=== PATIENT | male | born 1995 ===

== ENCOUNTER 2017-08-06 19:29 | Emergency (ER) | payer OTHER ==
[~2017-08-06] VITALS: Ht 160 cm; Wt 53.5 kg
[2017-08-06 19:39] VITALS: PULSE 67; TEMP 36.8; O2SAT 100; Ht 160 cm; Wt 53.5 kg
--- NOTE | 2017-08-06 21:01 | EMERGENCY ROOM VISIT NOTE ---
ED Visit Note First contact with patient: 20:33 CHIEF COMPLAINT: Right posterior calf laceration at work almost 24 hours ago HISTORY OF PRESENT ILLNESS: Patient is a 22-year-old male who presents emergency department for evaluation of a very superficial laceration on the posterior right calf that he sustained last evening. He was taking out a bag of garbage from the [employer], when he bumped into his leg. He believes that there was broken glass in the bag, which punctured through, causing the wound described below. There was some very scant bleeding initially. This controlled with pressure. He cleansed the area with an antiseptic from a first aid care. He denies any pain. There is no foreign body sensation. REVIEW OF SYSTEMS: Review of systems as per HPI. All other systems reviewed were negative. At least 6 systems reviewed. PMH: Electronic medical records are reviewed and summarized as above/below. See Problem List. Tetanus is up-to-date. 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 He does not smoke. PHYSICAL EXAM: Vital Signs: Reviewed Nurse's notes. There is a superficial, 6 cm long laceration on the posterior aspect of the right calf. There is no gaping of the wound edges. There is no foreign material in the wound and it looks clean. There is no active bleeding. No deep structures such as tendons or nerves are seen in the base of the wound. EMERGENCY DEPARTMENT COURSE: The patient was seen and assessed as above. He was reassured. He is well outside of the timeframe for which this could be repaired safely, however fortunately does not require suture repair. Patient was educated that the wound with heel fine by secondary intention. Local wound care measures were discussed. He has no reason to suspect foreign body, and given the depth of the wound, this was felt to be unlikely. The patient was educated on the worrisome signs or symptoms for which he should take immediate medical attention. He can follow-up with [facility] if necessary. Medication reconciliation: I attest that I have personally reviewed the patient' s current medication list. Blood pressure screening : Patient's blood pressure was not documented in triage , and was not rechecked at the time of discharge. Current/Historical Medications No Active Prescriptions or Reported Meds Allergies Coded Allergies: No Known Allergies (Unverified , 08/06/17) Vital Signs Date Time Temp Pulse Resp B/P (MAP) Pulse Ox O2 Delivery O2 Flow Rate FiO2 08/06/17 19:39 36.8 67 18 100 Room Air Departure Information Impression Primary Impression: Superficial laceration Additional Impression: Work related injury Prescriptions No Active Prescriptions or Reported Meds Referrals [facility] (PCP) Patient Instructions [facility] Additional Instructions Keep wound clean and dry. Wash daily with mild soap and water when bathing. Use an antibiotic ointment on the wound until healed. Cover as needed with a bandage. Return sooner for any signs of infection (increasing redness, swelling , drainage). Ice and elevate for swelling and pain. Ibuprofen 600 mg and Tylenol 1000 mg every 6 hrs for pain. May resume normal activity without restrictions. Problem Qualifiers
== END 2017-08-06 21:12 | disposition home or self-care (01) ==
LOC: C.EDB 19:32 → C.EDD 21:12
DX: S81.811A Laceration without foreign body, right lower leg, initial encounter (principal); W25.XXXA Contact with sharp glass, initial encounter; Y99.0 Civilian activity done for income or pay

== ENCOUNTER 2019-03-24 11:33 | Observation (INO) ==
--- OUTSIDE RECORDS SUMMARY | 2019-03-24 11:45 | External Medical Summary | Continuity of Care Document ---
:1995 Author Name Abi Denise, Provider Address Unavailable Unavailable , Care Team Providers Name Role Phone Salud Moise PA-C Unavailable [email or web address] PCP, UNKNOWN Unavailable Unavailable Unavailable Unavailable Unavailable Problems Chest pain (786.50) (R07.9) Cough (786.2) (R05) Pneumonia (486) (J18.9) Allergies and Adverse Reactions No Known Allergies (Allergy) Medications Tessalon Perles 100 MG Oral Capsule; TAKE 1 CAPSULE 3 TIMES DAILY NEEDED. Quantity: 40 Refills: 0 ProAir HFA 108 (90 Base) MCG/ACT Inhalat ion Aerosol Solution; INHALE 2 PUFFS EVERY 4 HOURS NEEDED 8.5 GM Inhaler Quantity: 1 Refills: 5 predniSONE 20 MG Oral Tablet; Take two tablets daily until f inished Quantity: 8 Refills: 0 Ibuprofen 200 MG Oral Tablet; TAKE 1 TABLET 3 TIMES DAILY NEEDED. Start: 24-Mar-2019 Refills: 0 Procedures History of no history of surgery Status: Completed Immunizations Immunizations not documented Family History Father Family history of diabetes mellitus (V18.0) (Z83.3) Status: Active Social History - Smoking Status Never smoker Plan of Treatment Planned Encounters Appointment; Salud Moise PA-C Start: 31-Mar-2019 9:00 Re quest Planned Observations Planned Goals not documented Results No Known Results Results not documented Vital Signs 24-Mar-2019 9:42 Systolic 118 mm[Hg] Comments: Location: LUE; Position: Sitting Diastolic 74 mm[Hg] Comments: Location: LUE; Position: Sitting Height 62 in BSA Calculated 1.5 m2 BMI Calculated 20.53 kg/m2 Weight 112.25 lb Respiration 13 /min O2 Saturation 98 % Comments: Source: RA Heart Rate 69 /min Temperature 97.8 f Encounters Appointment; Salud Moise PA-C 24-Mar-2019 9:45 Encounter Diagnosis: Problem not documented Appointment; Salud Moise PA-C 31-Mar-2019 9:00 Encounter Diagnosis: Problem not documented
[2019-03-24] MEDS ORDERED: MAGNESIUM HYDROXIDE SUSP 30 ML UDC PO PRN (14:49)
[2019-03-24] MEDS ORDERED: ALUMINUM/MAGNESIUM SUSP 30 ML UDC PO PRN (14:49)
[2019-03-24] MEDS ORDERED: ONDANSETRON INJ 2 MG/ML 2 ML VIAL IV PRN (14:49)
[2019-03-24] MEDS ORDERED: POLYETHYLENE (MIRALAX) 17 GM PACK PO PRN (14:49)
--- NOTE | 2019-03-24 15:03 | History & Physical Report ---
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 He presents with a 8 week history of wet cough, 1-2 episodes of blood streaked phlegm, on/off fevers, and <10 pound weight loss. Recent travel to [facility] 10/2018. Positive Tspot and CXR findings of RUL lesion despite 3 outpatient abx tx. +BCG vaccine hx. Suspected TB/Intermittent Fever/Cough/Hemoptysis -+BCG vaccine as child, +Tspot as outpatient -Isolation room, airborne precautions -Pulm and ID on board, appreciate recs -Chest CTA ordered -Awaiting CBC, CMP -[facility], [facility] infection control, and social services assistant consulted -For Bronch on 03/[address] Santana -Likely begin 4 abx after bronch -Need to make girlfriend aware, refer for prophylaxis Code: full DVTP: not indicated Dispo: med/surg, isolation room, home after starting abx and getting set up with [facility] Since we are going into a holiday weekend, if he is discharged prior to Wednesday, call the 24 hour [facility] hotline so that he can be seen by the on-call nurse after discharge (assuming he will be diagnosed with TB). 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 He presents with a 8 week history of wet cough, 1-2 episodes of blood streaked phlegm, on/off fevers, and <10 pound weight loss. He was being seen by [facility] who were working him up for URI illness, seeing him every 1-2 weeks since Mid-January. He was given tesslon and proair on 02/14. CXR on 03/01 showed RUL pna and he was given clarithromycin. On 03/06 he notes the cough was unchanged. He was given 5 days of 40mg prednisone, which helped his symptoms and he DNS for appt on 03/10. His symptoms returned, however, a/w intra-scapular discomfort while coughing and more frequent fevers. On 03/21 CXR was repeated and showed progression of RUL infiltrate. He was give Augmentin and azithromycin. Tspot was performed at that visit and returned as positive. He was referred to pulmonology, who saw him today (03/24). He notes a 2 lb weight loss this week. Aside from mostly dry cough and back pain when coughing, he reports some loose stool which he associates with his recent antibiotic use. Of note, he traveled to [facility] in October 2018, and traveled to [facility] in December 2018. Hx of BCG vaccination Lives in [employer] dorm, no roommate. 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: No Beliefs That Will Affect Care: Synagogue Current Living Situation: Significant Other Other Information That Helps Us Care for You: No Feels Safe at Home: Yes Safety Concerns: Feels Safe At This Time Smoking Status: Never smoker Do You Dip or Chew Tobacco: No Second Hand Exposure: No Tobacco Cessation Education Requested by Patient: No Hx Alcohol Use: Yes Hx Substance Use: No Review of Systems Review of Systems: All systems reviewed & are unremarkable except as noted in HPI & below Constitutional: + weight loss; no fever (currently afebrile) Respiratory: + cough, + hemoptysis (not currently but has in last month) and + pain with cough; no wheezing Cardiovascular: no chest pain, no dyspnea, no palpitations and no lightheadedness Gastrointestinal: no abdominal pain Genitourinary: no dysuria Musculoskeletal: + back pain (intrascapular while coughing) Integumentary: no rash and no lesions Physical Exam Constitutional: WD/WN, vitals as above Eyes: PERRL, conjunctivae normal, anicteric sclerae ENMT: external ear and nose normal, oropharynx normal Neck: normal visual inspection Respiratory: normal respiratory effort and + cough Auscultation: + rhonchi (RUL) Cardiovascular: RRR, no murmur, no edema Gastrointestinal (Abdomen): normal bowel sounds, soft, nontender, no hepatosplenomegaly Musculoskeletal: no cyanosis or clubbing, extremities motor strength 5/5 Skin: no rashes, warm and dry Neurologic: PERRL, EOMI, accommodation nl, no face palsy, no dysarthria Psychiatric: A+Ox3, euthymic affect Lymphatic: no cervical or axillary lymphadenopathy Results & Data Vital Signs (Past 12 Hours) Vital Signs Temp Pulse Resp BP Pulse Ox 03/24/19 12:06 37 C 99 H 18 106/73 99 Laboratory Results 03/24/19 03/24/19 Range/Units 15:16 15:09 WBC 12.57 H (4.8-10.8) K/uL RBC 4.95 (4.7-6.1) M/uL Hgb 15.3 (14.0-18.0) g/dL Hct 41.1 L (42-52) % MCV 83.0 (80-100) fL MCH 30.9 (25-34) pg MCHC 37.2 H (32-36) g/dL RDW Std Deviation 36.6 (36.4-46.3) fL RDW Coeff of Elva 12.2 (11.5-14.5) % Plt Count 242 (130-400) K/uL MPV 10.1 (7.4-10.4) fL Immature Gran % (Auto) 0.2 % Neut % (Auto) 67.3 % Lymph % (Auto) 22.6 % Wheeler % (Auto) 7.6 % Eos % (Auto) 2.1 % Baso % (Auto) 0.2 % Immature Gran # (Auto) 0.03 H (0.00-0.02) K/uL Neut # (Auto) 8.46 H (1.4-6.5) K/uL Lymph # (Auto) 2.84 (1.2-3.4) K/uL Wheeler # (Auto) 0.96 H (0.11-0.59) K/uL Eos # (Auto) 0.26 (0-0.5) K/uL Baso # (Auto) 0.02 (0-0.2) K/uL Sodium 139 (136-145) mmol/L Potassium 3.8 (3.5-5.1) mmol/L Chloride 105 (98-107) mmol/L Carbon Dioxide 28 (21-32) mmol/L Anion Gap 6.0 (3-11) BUN 11 (7-18) mg/dl Creatinine 0.85 (0.6-1.4) mg/dl Est Cr Clr Drug Dosing 96.8 ml/min Est GFR ( Amer) 143.4 Est GFR (Non-Af Amer) 123.7 BUN/Creatinine Ratio 13.1 (10-20) Glucose 83 (70-99) mg/dl Calcium 9.5 (8.5-10.1) mg/dl Total Bilirubin 0.5 (0.2-1) mg/dl AST 22 (15-37) U/L ALT 34 (12-78) U/L Alkaline Phosphatase 93 (45-117) U/L Total Protein 8.9 H (6.4-8.2) gm/dl Albumin 3.9 (3.4-5.0) gm/dl Globulin 5.0 H (2.5-4.0) gm/dl Albumin/Globulin Ratio 0.8 L (0.9-2) Medications Administered Current Inpatient Medications Acetaminophen (Tylenol) 650 mg PO Q4H PRN PRN Reason: pain/fever Stop: 04/23/19 14:48 Al Hydrox/Mg Hydrox/Simethicone (Maalox) 30 ml PO Q6H PRN PRN Reason: Dyspepsia Stop: 04/23/19 14:48 Sodium Chloride (Nss 1000ml) 1,000 mls @ 15 mls/hr IV .Q24H CHINYERE Stop: 04/24/19 07:44 Ioversol (Optiray 320 125ml) 115 ml IV ONCE PRN PRN Reason: Interaction Checking Stop: 03/28/19 16:43 Last Admin: 03/24/19 16:45 Dose: 115 ml Documented by: Magnesium Hydroxide (Milk Of Magnesia) 30 ml PO Q6H PRN PRN Reason: Constipation Stop: 04/23/19 14:48 Ondansetron HCl (Zofran) 4 mg IV Q6H PRN PRN Reason: Nausea Stop: 04/23/19 14:48 Polyethylene Glycol (Miralax Powder Packet) 17 gm PO DAILY PRN PRN Reason: Constipation Stop: 04/23/19 14:48 Code Status & VTE Plan Code Status Full VTE Prophylaxis Plan VTE Prophylaxis will be ordered: No Reason for no VTE drug order: Treatment not indicated Reason for no VTE mechanical prophylaxis: Treatment not indicated Supervising Physician Co-Signing Physician Notes Patient seen and examined independently of Dr. Yousif. Agree with history, exam findings, assessment and plan of care as outlined. 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 +travel history to [facility]. Hx of BCG vaccination. +Tspot and CXR with RUL lesion. has failed clarithromycin, prednisone and Augmentin/azithro courses. Still coughing. Exam with faint ronchi and decreased breath sounds in the right upper lobe. He is in isolation. Bronch scheduled for tomorrow with pulm. NPO at midnight. CT chest with cavitating lesion on the right upper lobe. Appreciate pulm and ID recommendations. Dispo: pending bonch. Resident Activity Tracking Resident Involvement: Resident Care Provided Care Provided: Adult Hospital Medicine
[2019-03-24 15:26] LABS: Basophils # (auto) 0.02 K/uL (0-0.2); Basophils % (auto) 0.2 %; Eosinophils # (auto) 0.26 K/uL (0-0.5); Eosinophils % (auto) 2.1 %; Hematocrit (blood only) 41.1 % (42-52); Hemoglobin 15.3 g/dL (14.0-18.0); Immature Granulocytes # (auto) 0.03 K/uL (0.00-0.02); Immature Granulocytes % (auto) 0.2 %; Lymphocytes # (auto) 2.84 K/uL (1.2-3.4); Lymphocytes % (auto) 22.6 %; Mean Platelet Volume 10.1 fL (7.4-10.4); Monocytes # (auto) 0.96 K/uL (0.11-0.59); Monocytes % (auto) 7.6 %; Neutrophils # (auto) 8.46 K/uL (1.4-6.5); Neutrophils % (auto) 67.3 %; Platelet Count 242 K/uL (130-400); RDW Coefficient of Variation 12.2 % (11.5-14.5); RDW Standard Deviation 36.6 fL (36.4-46.3); Red Blood Count 4.95 M/uL (4.7-6.1); White Blood Count 12.57 K/uL (4.8-10.8)
[2019-03-24 15:44] LABS: Albumin Level 3.9 gm/dl (3.4-5.0); BUN Creatinine Ratio 13.1 (10-20); Calcium 9.5 mg/dl (8.5-10.1); Creatinine Clr Calc Pharmacy 96.8 ml/min; Est GFR (African American) 143.4; Est GFR (Non-African American) 123.7; Potassium 3.8 mmol/L (3.5-5.1)
[2019-03-24 15:47] LABS: Albumin Globulin Ratio 0.8 (0.9-2); Bilirubin,Total 0.5 mg/dl (0.2-1); Total Protein 8.9 gm/dl (6.4-8.2)
[2019-03-24 16:11] LABS: Mean Corpuscular Hgb Conc 37.2 g/dL (32-36)
[2019-03-24] MEDS ORDERED: OPTIRAY 320 125ml IV PRN (16:44)
--- NOTE | 2019-03-24 16:59 | CT Scan Report ---
Study: CT angiography/CT of the chest HISTORY: Pneumonia COMPARISON: None. FINDINGS: Atypical ankle infiltrative process with underlying nodularity right upper lobe. There is a 2.9 x 2.3 cm nodular focus versus focus of consolidation within the central air component. This pote ntially represents a small abscess versus necrotic nodule. Additional nodularity shows no significant necrotic change. There is a 1.5 cm reactive right hilar node. No additional hilar or subcarinal adenopathy is identifi ed. No significant cardiac enlargement. Small amount of anterior mediastinal residual thymus. Lungs otherwise appear clear. There are findings of mild hepatomegaly. IMPRESSION: 1. Atypical infiltrative process right upper lobe with a dominant 2.9 x 2.3 cm nodule or consolidativ e component demonstrating central necrosis 2. Diagnostic considerations must include an atypical inflammatory process, granulomatous process, or potentially autoimmune/opportunistic inflammatory process. 3. Bronchoscopy is suggested as follow-up. 4. Remainder the chest is negative. 5. Mild hepatomegaly. 6. The pulmonary arterial vasculature appears unremarkable. Electronically signed by: Elie Watkins M.D. 03/24/2019 4:58 PM
--- NOTE | 2019-03-24 22:06 | Consultation Report ---
DATE OF CONSULTATION: 03/24/2019 TIME: 1500. REASON FOR CONSULTATION: Right upper lobe infiltrate with persistent cough, hemoptysis, and fever, rule out tuberculosis, pneumonia, versus other etiology. 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 He is a nonsmoker, but did have some secondary exposure. He is not aware of whether he underwent BCG vaccination as a child but that is probably the case. He was prescribed antibiotic initially when a chest x-ray suggested right upper lobe pneumonitis. He also was placed eventually on a prednisone course which helped his cough after 5 days of utilization. He was then placed on a second antibiotic course this past Wednesday. The initial antibiotic was Augmentin 875 mg b.i.d. plus azithromycin. He has also been prescribed clarithromycin. That seemed to worsen his appetite and he has lost a couple of pounds over the past several days, but he attributes that to some anorexia and nausea. Denies pleuritic pain. Initially when he had a fever, he did exhibit some blood-streaking hemoptysis that was self-limiting. The fever eventually abated, but then came back within the past 2 weeks. He denies night sweats, hoarseness, or any other systemic symptoms. A grandfather on the paternal side was originally diagnosed with tuberculosis and was treated but apparently that was not "the diagnosis." He is not aware of anyone else in the family or contacts that have had active pulmonary tuberculosis. He has travelled extensively in [place] on vacation and currently resides in student housing having his own room. He does have a girlfriend that frequents his habitation. He has been otherwise healthy, there are no acute or chronic ongoing medical problems. He has had some bilateral back pain mostly in the upper back over the past several weeks with no neck stiffness, sinus drainage, reflux symptoms, etc. He was also prescribed a ProAir inhaler. Rest of his past medical history is noncontributory. PHYSICAL EXAMINATION: GENERAL: Reveals a thin, diminutive [place] male in no obvious distress at rest. CURRENT VITAL SIGNS: O2 sat 98%, temperature 97.8, blood pressure 118/74, respiratory rate 12, BMI is 20.5, heart rate 68 and regular. SKIN: Without lesion. HEENT: Atraumatic, normocephalic. PERRLA. EOMI. Conjunctivae pink. Sclerae nonicteric. Fundi poorly visualized. The pharyngeal exam shows no exudate or tonsillar hypertrophy. LYMPHATICS: There is no adenopathy in the supra or infraclavicular areas or posterior or anterior cervical lymph region or submental region. NECK: Neck veins are not distended at 45 degrees. No lymphadenopathy in the supra or infraclavicular areas. LUNGS: Generally clear to P and A. CARDIAC: Regular rate and rhythm. No murmurs or gallops. ABDOMEN: Soft, scaphoid. No evidence of hepatosplenomegaly. EXTREMITIES: No pedal edema, clubbing or cyanosis. NEUROLOGICAL: Cranial nerves II-XII grossly intact. LABORATORY DATA: Chest x-ray on both 03/01/2019 and 03/21/2019 are commented on, but I do not have those films. The latter done 3 days ago compared to 03/01/2019 shows some improvement but airspace opacity is again appreciated in the right upper lobe that looks more prominent than on previous exam and there is a fullness in the right paratracheal region that is appreciated. At the same time, his white count is 11,500, H and H 14 and 43, 62% polymorphonuclear leukocytes, 10.9% monocytes, 5.7% eosinophils. On March 01, white count was 10,000, H and H stable, differential showed 21.8% lymphocytes and 2.1% eosinophils. The patient's TB spot examination was reportedly positive. The chest x-ray has been sent for. OVERALL ASSESSMENT AND PLAN: A 24-year-old male from [place] [facility] with 8-9 weeks of cough, mild blood-streaking hemoptysis, periodic fever, worsening right upper lobe opacity with suggestion of right paratracheal lymphadenopathy. Certainly this would be very suggestive given the positive TB spot examination for probable primary tuberculosis. The plan has been to place the patient in respiratory isolation. Given that he is virtually bringing up no sputum, we will schedule bronchoscopy with BAL tomorrow and I have reviewed the risks of that procedure as well as the indications and then I have consulted infectious disease and spoke with Dr. Vel Anthony. I feel we should start him on 4-drug regimen pending the study and probably discharge him on Wednesday with quarantine and isolation in his apartment pending results of the study and with [facility] Department followup on contacts and medication administration.
[2019-03-25 05:58] LABS: Basophils # (auto) 0.01 K/uL (0-0.2); Basophils % (auto) 0.1 %; Eosinophils # (auto) 0.37 K/uL (0-0.5); Hematocrit (blood only) 39.7 % (42-52); Hemoglobin 14.4 g/dL (14.0-18.0); Immature Granulocytes # (auto) 0.03 K/uL (0.00-0.02); Immature Granulocytes % (auto) 0.2 %; Lymphocytes # (auto) 3.01 K/uL (1.2-3.4); Lymphocytes % (auto) 24.4 %; Mean Corpuscular Hgb Conc 36.3 g/dL (32-36); Mean Corpuscular Volume 83.6 fL (80-100); Monocytes # (auto) 1.01 K/uL (0.11-0.59); Monocytes % (auto) 8.2 %; Neutrophils # (auto) 7.89 K/uL (1.4-6.5); Neutrophils % (auto) 64.1 %; Platelet Count 264 K/uL (130-400); RDW Coefficient of Variation 12.1 % (11.5-14.5); RDW Standard Deviation 36.9 fL (36.4-46.3); Red Blood Count 4.75 M/uL (4.7-6.1); White Blood Count 12.32 K/uL (4.8-10.8)
[2019-03-25] MEDS ORDERED: MIDAZOLAM HCL 1 MG/ML 2ML VIAL ONE (07:54)
[2019-03-25] MEDS ORDERED: fentaNYL citrate 100 MCG/2 ML VIAL ONE (07:54)
[2019-03-25] MEDS: SODIUM CHLOR 7% 4 ML NEB INH SCH ×2 (08:00→21:58)
[2019-03-25] MEDS: SODIUM CHLORIDE 0.9% 1000ML 1,000 ML IV SCH (08:31)
--- NOTE | 2019-03-25 08:42 | Pre Anesthesia Assessment ---
Date of Service March 25, 2019 Pre Sedation Assessment Vital Signs Temp Pulse Pulse Resp BP BP Pulse Ox 03/25/19 08:35 98 H 20 108/66 96 03/25/19 08:23 96 H 20 117/69 100 03/25/19 08:21 110 H 20 111/72 100 03/25/19 08:16 87 21 107/59 L 100 03/25/19 08:10 101 H 20 103/59 L 100 03/25/19 07:00 36.6 C 93 H 16 102/68 99 03/25/19 00:00 36.6 C 88 18 107/69 98 03/24/19 15:38 36.8 C 77 20 109/73 99 03/24/19 12:06 37 C 99 H 18 106/73 99 Pre-Sedation Airway Assessment Smoking Status: Never smoker Hx Sleep Apnea: No Short, Thick Neck: No Oral Cavity: + WNL Mallampati Class: I ASA: ASA1 NPO Status Date of Last Intake of Fluids: 03/24/19 Date of Last Intake of Solid Food: 03/24/19 Notes The planned sedation has been discussed with the patient. Informed Consent was obtained. I have identified the patient, determined the appropriateness of sedation and have assessed the patient immediately prior to the procedure. All medicine(s) and interventions are by my order.
--- NOTE | 2019-03-25 08:42 | History & Physical Bridge Note ---
Date of Service March 25, 2019 History & Physical Bridge Note I have examined the patient, reviewed the History & Physical and in the interval since the performance of the History & Physical I have noted the following changes of clinical significance: no changes noted
--- NOTE | 2019-03-25 08:43 | Post Anesthesia Assessment ---
Date of Service March 25, 2019 Post Sedation Assessment Vital Signs Temp Pulse Pulse Resp BP BP Pulse Ox 03/25/19 08:35 98 H 20 108/66 96 03/25/19 08:23 96 H 20 117/69 100 03/25/19 08:21 110 H 20 111/72 100 03/25/19 08:16 87 21 107/59 L 100 03/25/19 08:10 101 H 20 103/59 L 100 03/25/19 07:00 36.6 C 93 H 16 102/68 99 03/25/19 00:00 36.6 C 88 18 107/69 98 03/24/19 15:38 36.8 C 77 20 109/73 99 03/24/19 12:06 37 C 99 H 18 106/73 99 Recovery Score Activity: Moves 4 extremities Respiration: Deep Breath/Cough Circulation: +/-20% PreAnes Value Consciousness: Fully Awake Oxygen Saturation: O2 needed for >90% Post Anesthesia Score: 8 Discharge Sedation Level of Care: Fast Track Phase II Post Sedation Plan On clinical assessment, the patient appears to have tolerated the sedation without complications. Patient is recovering as anticipated. Patient will continue to be monitored by nursing and may be discharged when sedation discharge criteria are met per below protocol. Upon Completions of procedure and additional 15 minutes continue every 5 minute vital signs and the P.A.R. score; then discharge to a Phase I or Fast Track to Phase II per the following guidelines: * Discharge Patient to appropriate Phase II area if PAR is 8 or greater or return to pre- procedure baseline. The post - procedure orders will be as directed. * If PAR score is less than 8 or not return to pre-procedure baseline then patient will follow Phase I monitoring till PAR is reached for Phase II. The Phase I may be done in procedure room or may call to secure a Phase I area. * If naloxone or flumazenil are used for reversal, hold in Phase I for continued monitoring from when last reversal dose was given for a minimum of 60 minutes or longer pending the nurse and/or physician discretion of patient condition before discharge to Phase II. Please call the Sedation Physician to re-evaluate and complete post-note for discharge to Phase II area. Do NOT discharge from procedure sedation or Phase 1 until post- sedation evaluation note is complete by procedure /sedation MD Sedation Discharge Instructions to be given to the patient at discharge to home.
--- NOTE | 2019-03-25 08:44 | Post Operative Brief Note ---
Immediate Post Op Note v1 Date of Surgery March 25, 2019 Procedure RUL cavitary pneumonia Surgeon Caesar Santana MD Press Operator [place] none Estimated Blood Loss 0 Findings Consistent with Post-Op Diagnosis RUL cavitary pneumonia R?O TB Complications none Disposition Accompanied Patient To Recovery: No Overlapping Procedure I was present for: the critical portions of procedure. I was immediately available: during the entire case. Back up surgeon: was not required during procedure.
--- NOTE | 2019-03-25 08:45 | Family Medicine Progress Note ---
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 Had 8 week history of wet cough, 1-2 episodes of blood streaked phlegm, on/off fevers, and <10 pound weight loss. Recent travel to [facility] 10/2018. Positive Tspot and CXR findings of RUL lesion despite 3 outpatient abx tx. +BCG vaccine hx. S/p bronchoscopy 25May with prelim AFB smear resulting moderate acid fast bacilli. #Suspected TB/Intermittent Fever/Cough/Hemoptysis -+BCG vaccine as child, +Tspot as outpatient -Isolation room, airborne precautions -Pulm and ID on board, appreciate recs -Chest CTA shows RUL cavitary lesion -[facility], [facility] infection control, and social welfare administrator consulted -S/p bronchoscopy 25May with prelim AFB smear resulting moderate acid fast bacilli. -RIPE abx started 25May after bronch. -Patient's girlfriend made aware by patient to seek care for prophylaxis Code: full DVTP: ambulation Dispo: med/surg, isolation room, home after starting abx and getting set up with [facility] Since we are going into a holiday weekend, if he is discharged prior to Wednesday, call the 24 hour [facility] hotline so that he can be seen by the on-call nurse after discharge (assuming he will be diagnosed with TB). (2) Cavitary pneumonia: (3) History of hemoptysis: (4) Cough: Supervising Physician Co-Signing Physician Notes Patient seen and examined with Dr. Lemos. Agree with history, exam findings, assessment and plan of care as outlined. 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 +travel history to [facility]. Hx of BCG vaccination. +Tspot and CXR with RUL lesion. has failed clarithromycin, prednisone and Augmentin/azithro courses. CT chest with right upper lobe lesions with necrotic center. Had bronch this morning and washing positive for acid fast bacilli. Still coughing but otherwise feeling well. ID consulted and started quad therapy. Lungs are clear on exam. He is in isolation. Appreciate pulm and ID recommendations. At this point, we just coordinating discharge. Unable to get in touch with infection control and we will need to make sure he is able to get the medication at a local pharmacy prior to discharge. Would appreciate care management's assistance with this--already consulted. He is hoping to be discharged this weekend if we are able to get everything together. Subjective Seen and examined at the bedside. Post bronchoscopy. Increased cough, is nonproductive. Denies hemoptysis. Tolerating PO. Per micro, prelim washings growing acid fast bacilli. No acute events overnight. Review of Systems Review of Systems: All systems reviewed & are unremarkable except as noted in HPI & below Physical Exam Physical Exam: Vitals noted as above and within normal limits . GENERAL: Awake, alert to person, place, and time, nontoxic-appearing, in no distress HENT: Normocephalic, atraumatic. Mucus membranes appear moist. EYES: Normal conjunctiva. Sclera non-icteric. EOMI. NECK: Supple. Full range of motion. RESPIRATORY: Clear to auscultation. Normal work of breathing. CARDIAC: Regular rate, normal rhythm. Extremities warm and well perfused. ABDOMEN: Soft, non-distended. Bowel sounds are normal. NEURO: No focal gross focal motor deficits noted. Sensation in tact. CN II-XII grossly in tact. SKIN: Rash not present. No jaundice noted. Significant lesions not present. PSYCH: Appropriate mood and affect. Cooperative. Exam as done by Nunu Lemos MD, Manufacturing Intern. Results & Data Vital Signs (Past 12 Hours) Vital Signs Temp Pulse Pulse Resp BP BP Pulse Ox 03/25/19 08:40 94 H 18 117/68 97 03/25/19 08:35 98 H 20 108/66 96 03/25/19 08:23 96 H 20 117/69 100 03/25/19 08:21 110 H 20 111/72 100 03/25/19 08:16 87 21 107/59 L 100 03/25/19 08:10 101 H 20 103/59 L 100 03/25/19 07:00 36.6 C 93 H 16 102/68 99 03/25/19 00:00 36.6 C 88 18 107/69 98 Laboratory Results 03/25/19 03/25/19 03/25/19 Range/Units 10:12 10:12 08:30 WBC (4.8-10.8) K/uL RBC (4.7-6.1) M/uL Hgb (14.0-18.0) g/dL Hct (42-52) % MCV (80-100) fL MCH (25-34) pg MCHC (32-36) g/dL RDW Std Deviation (36.4-46.3) fL RDW Coeff of Elva (11.5-14.5) % Plt Count (130-400) K/uL MPV (7.4-10.4) fL Immature Gran % (Auto) % Neut % (Auto) % Lymph % (Auto) % Ford % (Auto) % Eos % (Auto) % Baso % (Auto) % Immature Gran # (Auto) (0.00-0.02) K/uL Neut # (Auto) (1.4-6.5) K/uL Lymph # (Auto) (1.2-3.4) K/uL Ford # (Auto) (0.11-0.59) K/uL Eos # (Auto) (0-0.5) K/uL Baso # (Auto) (0-0.2) K/uL Procalcitonin < 0.05 (0-0.5) ng/ml Fluid Polynuclear WBCs 28.0 % Fluid Mononuclear WBCs 72.0 % Fluid Slide Review Pending BAL A.galactomannan Ag BAL A.galactomann Index TB Test (QFT) Gold Plus Pending TB Test (QFT) Nil Pending TB Test Mitogen - Nil Pending TB Test Ag - Nil 1 Pending TB Test Ag - Nil 2 Pending 03/25/19 03/25/19 Range/Units 08:30 05:21 WBC 12.32 H (4.8-10.8) K/uL RBC 4.75 (4.7-6.1) M/uL Hgb 14.4 (14.0-18.0) g/dL Hct 39.7 L (42-52) % MCV 83.6 (80-100) fL MCH 30.3 (25-34) pg MCHC 36.3 H (32-36) g/dL RDW Std Deviation 36.9 (36.4-46.3) fL RDW Coeff of Elva 12.1 (11.5-14.5) % Plt Count 264 (130-400) K/uL MPV 10.0 (7.4-10.4) fL Immature Gran % (Auto) 0.2 % Neut % (Auto) 64.1 % Lymph % (Auto) 24.4 % Ford % (Auto) 8.2 % Eos % (Auto) 3.0 % Baso % (Auto) 0.1 % Immature Gran # (Auto) 0.03 H (0.00-0.02) K/uL Neut # (Auto) 7.89 H (1.4-6.5) K/uL Lymph # (Auto) 3.01 (1.2-3.4) K/uL Ford # (Auto) 1.01 H (0.11-0.59) K/uL Eos # (Auto) 0.37 (0-0.5) K/uL Baso # (Auto) 0.01 (0-0.2) K/uL Procalcitonin (0-0.5) ng/ml Fluid Polynuclear WBCs % Fluid Mononuclear WBCs % Fluid Slide Review BAL A.galactomannan Ag Pending BAL A.galactomann Index Pending TB Test (QFT) Gold Plus TB Test (QFT) Nil TB Test Mitogen - Nil TB Test Ag - Nil 1 TB Test Ag - Nil 2 Medications Administered Current Inpatient Medications Acetaminophen (Tylenol) 650 mg PO Q4H PRN PRN Reason: pain/fever Stop: 04/23/19 14:48 Last Admin: 03/25/19 18:13 Dose: 650 mg Documented by: Al Hydrox/Mg Hydrox/Simethicone (Maalox) 30 ml PO Q6H PRN PRN Reason: Dyspepsia Stop: 04/23/19 14:48 Ethambutol HCl (Myambutol) 800 mg PO DAILY CHINYERE Stop: 04/24/19 08:59 Last Admin: 03/25/19 11:49 Dose: 800 mg Documented by: Sodium Chloride (Nss 1000ml) 1,000 mls @ 15 mls/hr IV .Q24H CHINYERE Stop: 04/24/19 07:44 Last Admin: 03/25/19 08:31 Dose: 15 mls/hr Documented by: Ioversol (Optiray 320 125ml) 115 ml IV ONCE PRN PRN Reason: Interaction Checking Stop: 03/28/19 16:43 Last Admin: 03/24/19 16:45 Dose: 115 ml Documented by: Isoniazid (Isoniazid) [facility] Stop: 04/24/19 08:59 Last Admin: 03/25/19 11:49 Dose: 300 mg Documented by: Magnesium Hydroxide (Milk Of Magnesia) 30 ml PO Q6H PRN PRN Reason: Constipation Stop: 04/23/19 14:48 Ondansetron HCl (Zofran) 4 mg IV Q6H PRN PRN Reason: Nausea Stop: 04/23/19 14:48 Polyethylene Glycol (Miralax Powder Packet) 17 gm PO DAILY PRN PRN Reason: Constipation Stop: 04/23/19 14:48 Pyrazinamide (Pyrazinamide) 1,000 mg PO [facility] Stop: 04/24/19 08:59 Last Admin: 03/25/19 11:50 Dose: 1,000 mg Documented by: Pyridoxine HCl (Vitamin B-6) 50 mg PO [facility] Stop: 04/24/19 08:59 Last Admin: 03/25/19 11:52 Dose: 50 mg Documented by: Rifampin (Rifampin) 600 mg PO [facility] Stop: 04/01/19 08:59 Last Admin: 03/25/19 11:51 Dose: 600 mg Documented by: Sodium Chloride (Sodium Chlor 7% Neb Solution) 4 ml [facility] Stop: 04/24/19 07:59 Last Admin: 03/25/19 08:00 Dose: 4 ml Documented by: Resident Activity Tracking Resident Involvement: Resident Care Provided Care Provided: Adult [facility] Medicine
--- NOTE | 2019-03-25 08:46 | Infectious Disease Consult ---
Date of Consultation March 25, 2019 Assessment & Plan (1) Cavitary pneumonia: highly suspicious for pulm TB. will start 4 drug therapy for suspected TB, add vitamin b6. will follow in [facility] clinic as well. Explained to patient that bronch cultures may take several weeks to grow TB and he remains high suspicion for TB and spread. He will not be able to leave his apartment if d/c home, he understands and agrees. 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 He was also informed that his girlfriend will require testing and likely treatment for LTBI as she is a close household contact, further investigation will be done next week with [facility]. He understands. He is agreeable to start TB meds pending bronch culture results and is agreeable to meet with [facility] next week, hopefully on Wednesday. Discussed with pulm. will plan to follow at [facility] in early April. History of Present Illness Attending Physician: Pamela Snowden DO pt admitted from pulm office due to high suspicion for pulm TB. CTA done in ER showing 2.9x2.3 necrotic nodule in RUL. Pt has had cough, fever, some hemoptysis, wt loss and sweats for past 8-9 weeks. Has h/o grandfather with TB. from [place]. 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 He was previouly followed at [facility], had cxr in early March - reported abnormal, was given clarithromycin, had some gi upset with this but had wt loss prior. No improvement in pulm symptoms, repeat cxr on 03/21 - no improvement, still with abnormality, given z pack and Augmentin, no releif. t spot done and reportedly +. Pt is seen post bronch this am. tolerating well. no f/c currently. wbc elevated at 12.3. nkda. afb cultures pending. pt is asking for d/c to home [place]. Currently has dry cough post bronch, no cp, sob, n/v/d, no abd pain, eating now that he is off of abx. discussed with pulm, plan to start emperic tb meds and d/c in am to home quarantine. He will have [facility] visit on Wednesday, after holiday. he currently denies hemoptysis but does have dry cough on my exam, post bronch. Allergies Allergy/AdvReac Type Severity Reaction Status Date / Time Pork/Porcine Containing AdvReac Mild Gastrointestinal Verified 03/24/19 12:48 Products Upset Home Medications Home Medications Medication Instructions Recorded Confirmed Type albuterol sulfate 03/24/19 History amoxicillin-pot clavulanate 03/24/19 History azithromycin 03/24/19 History Patient History Social History Preferred Language: Finnish Communication Ability: Effective Assistant Finance Manager Required: No Beliefs That Will Affect Care: Scientologist Current Living Situation: Significant Other Other Information That Helps Us Care for You: No Feels Safe at Home: Yes Safety Concerns: Feels Safe At This Time Smoking Status: Never smoker Do You Dip or Chew Tobacco: No Second Hand Exposure: No Tobacco Cessation Education Requested by Patient: No Hx Alcohol Use: Yes Hx Substance Use: No Review of Systems Review of Systems: All systems reviewed & are unremarkable except as noted in HPI & below Physical Exam Constitutional: WD/WN, vitals as above Eyes: PERRL, conjunctivae normal, anicteric sclerae ENMT: external ear and nose normal, oropharynx normal Neck: normal visual inspection Respiratory: normal respiratory effort, lungs clear to auscultation Cardiovascular: RRR, no murmur, no edema Gastrointestinal (Abdomen): normal bowel sounds, soft, nontender, no hepatosplenomegaly Musculoskeletal: no cyanosis or clubbing, extremities motor strength 5/5 Skin: no rashes, warm and dry Psychiatric: A+Ox3, euthymic affect Results & Data Vital Signs (Past 12 Hours) Vital Signs Temp Pulse Pulse Resp BP BP Pulse Ox 03/25/19 08:23 96 H 20 117/69 100 03/25/19 08:21 110 H 20 111/72 100 03/25/19 08:16 87 21 107/59 L 100 03/25/19 08:10 101 H 20 103/59 L 100 03/25/19 07:00 36.6 C 93 H 16 102/68 99 03/25/19 00:00 36.6 C 88 18 107/69 98
--- NOTE | 2019-03-25 11:19 | Progress Note ---
DATE: 03/25/2019 PULMONARY MEDICINE PROGRESS NOTE Chart reviewed, the patient examined and assessed. SUBJECTIVE: The patient underwent bronchoscopy this morning with extensive bronchoalveolar lavage of the posterior and anterior apical segments of the right upper lobe without difficulty. A CT scan of the chest was reviewed prior to the procedure and clearly showed an infiltrative process involving the right upper lobe with a dominant 2.9 x 2.3 cm nodular area of consolidation demonstrating central necrosis. There was some mild reactive right hilar lymphadenopathy measuring 1.5 cm. Certainly pulmonary tuberculosis process versus other opportunistic infection needs to be ruled out. Appreciate an evaluation by Dr. Kimmie Cortes from infectious disease. In our discussion this morning, we agreed to start patient on a 4-drug regimen that includes INH, rifampin, pyrazinamide, ethambutol and Dr. Cortes has written into the orders for these 4 medications adjusted for patient's 50 kilogram body weight. The patient will need to remain in the hospital through Wednesday until the Public Health Department can make contact with him and provide his medications free of charge. He was informed of that even prior to the bronchoscopy this morning that he will need to remain here and we will get started on the 4-drug regimen. The rationale for the 4-drug regimen was explained to the patient and we will obtain additional sputum for acid fast bacilli in addition to the bronchial washings for completeness sake.
[2019-03-25] MEDS: ETHAMBUTOL HCL 400 MG TAB PO SCH (11:49)
[2019-03-25] MEDS: ISONIAZID 300 MG TAB PO SCH (11:49)
[2019-03-25] MEDS: PYRAZINAMIDE 500 MG TABLET PO SCH (11:50)
[2019-03-25] MEDS: rifAMPin 300 MG CAPSULE PO SCH (11:51)
[2019-03-25] MEDS: PYRIDOXINE HCL 50 MG TAB PO SCH (11:52)
[2019-03-25] MEDS: ACETAMINOPHEN 325 MG TAB PO PRN (18:13)
[2019-03-26] MEDS: rifAMPin 300 MG CAPSULE PO SCH (08:13)
[2019-03-26] MEDS: ETHAMBUTOL HCL 400 MG TAB PO SCH (08:13)
[2019-03-26] MEDS: ISONIAZID 300 MG TAB PO SCH (08:13)
[2019-03-26] MEDS: PYRIDOXINE HCL 50 MG TAB PO SCH (08:13)
--- NOTE | 2019-03-26 08:27 | Infectious Disease Progress Nt ---
Date of Service March 26, 2019 Assessment & Plan (1) Active tuberculosis: continue isolation, maintain 4 drug therapy for suspected cavitary pulm tb. will follow with [facility] on Wednesday am and proceed with transition to home isolation, contact eval, etc at that time. Subjective AFB smear mederately +, tolerating TB meds emperically. afebrile. plan to maintain in hospital in isolation until [facility] eval. Results & Data Vital Signs (Past 12 Hours) Vital Signs Temp Pulse Resp BP BP Pulse Ox 03/26/19 07:00 36.8 C 115 H 18 104/65 94 03/26/19 06:20 37.0 C 90 18 101/72 98 03/26/19 04:00 37.6 C H 118 H 18 84/47 L 97 03/25/19 23:00 37 C 98 H 20 101/69 100 Laboratory Results Microbiology 03/25/19 08:30 Bronch Wash,Right Upper Lobe Gram Stain - Final 03/25/19 08:30 Bronch Wash,Right Upper Lobe Bronchoalveolar Lavage Culture - Preliminary Moderate normal madelin present, final report to follow. 03/25/19 08:30 Bronch Wash,Right Upper Lobe Acid Fast Bacilli Smear - Final 03/25/19 08:30 Bronch Wash,Right Upper Lobe Fungal Smear - Final
--- NOTE | 2019-03-26 08:39 | Family Medicine Progress Note ---
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 Had 8 week history of wet cough, 1-2 episodes of blood streaked phlegm, on/off fevers, and <10 pound weight loss. Recent travel to [facility] 10/2018. Positive Tspot and CXR findings of RUL lesion despite 3 outpatient abx tx. +BCG vaccine hx. S/p bronchoscopy 25May with prelim AFB smear resulting moderate acid fast bacilli. #Active TB/Intermittent Fever/Cough/Hemoptysis -+BCG vaccine as child, +Tspot as outpatient -Isolation room, airborne precautions -Pulm and ID on board, appreciate recs -Chest CTA shows RUL cavitary lesion -[facility] [place] [facility] infection control, and sr. social media & mobile manager consulted -S/p bronchoscopy 25May with prelim AFB smear resulting moderate acid fast bacilli. -RIPE abx started 25May after bronch. -Patient's girlfriend made aware by patient to seek care for prophylaxis Code: full DVTP: ambulation Dispo: med/surg, isolation room, home after starting abx and getting set up with [facility] on Wednesday 28May (2) Cavitary pneumonia: (3) History of hemoptysis: (4) Cough: Supervising Physician Co-Signing Physician Notes Patient seen and examined with Dr. Lemos. Agree with history, exam findings, assessment and plan of care as outlined. 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 +travel history to [facility]. Hx of BCG vaccination. +Tspot and CXR with RUL lesion. has failed clarithromycin, prednisone and Augmentin/azithro courses. CT chest with right upper lobe lesion with necrotic center. Had bronch this morning and washing positive for acid fast bacilli. Still coughing with intermittent fever. Started quadruple therapy. Lungs are clear on exam. He is in isolation. Appreciate pulm and ID recommendations. At this point, we just coordinating discharge. He will be here until Wednesday when [facility] can see him. Dispo: discharge planned for Wednesday pending any new issues. Subjective Seen and examined at the bedside. Girlfriend at the bedside. Discussed education regarding TB exposure, diagnosis and treatment. Patient reports his urine is an orange color. He says he feels worse, per nursing he is spiking fevers. His cough is ongoing but not worse. Tolerating p.o. Review of Systems Review of Systems: All systems reviewed & are unremarkable except as noted in HPI & below Physical Exam Physical Exam: Vitals noted as above and within normal limits . GENERAL: Awake, alert to person, place, and time, nontoxic-appearing, in no distress HENT: Normocephalic, atraumatic. Mucus membranes appear moist. EYES: Normal conjunctiva. Sclera non-icteric. EOMI. NECK: Supple. Full range of motion. RESPIRATORY: Clear to auscultation. Normal work of breathing. CARDIAC: Regular rate, normal rhythm. Extremities warm and well perfused. ABDOMEN: Soft, non-distended. Bowel sounds are normal. NEURO: No focal gross focal motor deficits noted. Sensation in tact. CN II-XII grossly in tact. SKIN: Rash not present. No jaundice noted. Significant lesions not present. PSYCH: Appropriate mood and affect. Cooperative. Exam as done by Nunu Lemos MD, Dry Cell And Battery Assembler. Results & Data Vital Signs (Past 12 Hours) Vital Signs Temp Pulse Resp BP BP Pulse Ox 03/26/19 07:00 36.8 C 115 H 18 104/65 94 03/26/19 06:20 37.0 C 90 18 101/72 98 03/26/19 04:00 37.6 C H 118 H 18 84/47 L 97 03/25/19 23:00 37 C 98 H 20 101/69 100 Medications Administered Current Inpatient Medications Acetaminophen (Tylenol) 650 mg PO Q4H PRN PRN Reason: pain/fever Stop: 04/23/19 14:48 Last Admin: 03/26/19 12:01 Dose: 650 mg Documented by: Al Hydrox/Mg Hydrox/Simethicone (Maalox) 30 ml PO Q6H PRN PRN Reason: Dyspepsia Stop: 04/23/19 14:48 Ethambutol HCl (Myambutol) 800 mg PO DAILY CHINYERE Stop: 04/24/19 08:59 Last Admin: 03/26/19 08:13 Dose: 800 mg Documented by: Hydrocodone Bit/Homatropine Methylb (Hycodan) 5 ml PO HS PRN PRN Reason: Cough Stop: 04/09/19 12:20 Sodium Chloride (Nss 1000ml) 1,000 mls @ 15 mls/hr IV .Q24H CHINYERE Stop: 04/24/19 07:44 Last Infusion: 03/26/19 09:47 Dose: Infused Documented by: Ioversol (Optiray 320 125ml) 115 ml IV ONCE PRN PRN Reason: Interaction Checking Stop: 03/28/19 16:43 Last Admin: 03/24/19 16:45 Dose: 115 ml Documented by: [facility]soniazid (Isoniazid) [facility] Stop: 04/24/19 08:59 Last Admin: 03/26/19 08:13 Dose: 300 mg Documented by: Magnesium Hydroxide (Milk Of Magnesia) 30 ml PO Q6H PRN PRN Reason: Constipation Stop: 04/23/19 14:48 Menthol (Nice) 1 dave BUCCAL QID PRN PRN Reason: Sore Throat Stop: 04/25/19 12:20 Last Admin: 03/26/19 14:18 Dose: 1 dave Documented by: Ondansetron HCl (Zofran) 4 mg IV Q6H PRN PRN Reason: Nausea Stop: 04/23/19 14:48 Polyethylene Glycol (Miralax Powder Packet) 17 gm PO DAILY PRN PRN Reason: Constipation Stop: 04/23/19 14:48 Pyrazinamide (Pyrazinamide) 1,000 mg PO [facility] Stop: 04/24/19 08:59 Last Admin: 03/26/19 09:49 Dose: 1,000 mg Documented by: Pyridoxine HCl (Vitamin B-6) [facility] Stop: 04/24/19 08:59 Last Admin: 03/26/19 08:13 Dose: 50 mg Documented by: Rifampin (Rifampin) 600 [facility] Stop: 04/01/19 08:59 Last Admin: 03/26/19 08:13 Dose: 600 mg Documented by: Resident Activity Tracking Resident Involvement: Resident Care Provided Care Provided: Adult Hospital Medicine
--- NOTE | 2019-03-26 09:25 | Progress Note ---
DATE: 03/26/2019 Chart reviewed, patient examined. SUBJECTIVE: The patient is still coughing, otherwise doing well. Preliminary report from the bronchial washings/acid fast smears show moderate organisms and the patient was started on 4-drug regimen yesterday empirically. There is little question that we are dealing with cavitary pulmonary tuberculosis and this has been explained to the patient and he has explained this to his family. He is tolerating so far the 4-drug regimen and we are working with Dr. Cortes and we are in agreement to keep him there to at least Wednesday and make contact with Department of Health, so that they can supply his medications free of charge and go about their business to inform and test contacts. LUPE
[2019-03-26] MEDS: SODIUM CHLORIDE 0.9% 1000ML 1,000 ML IV SCH (09:47)
[2019-03-26] MEDS: PYRAZINAMIDE 500 MG TABLET PO SCH (09:49)
[2019-03-26] MEDS: ACETAMINOPHEN 325 MG TAB PO PRN ×2 (12:01→20:20)
[2019-03-26] MEDS ORDERED: COUGH DROP (SUGAR FREE) LOZ 24 LOZ/1 BOX BUCCAL PRN (12:21)
[2019-03-26] MEDS: HYDROCODONE/HOMATROPINE SYRUP 5MG/1.5MG 5ML UDP PO PRN (22:41)
[2019-03-27] MEDS: PYRAZINAMIDE 500 MG TABLET PO SCH (08:55)
[2019-03-27] MEDS: PYRIDOXINE HCL 50 MG TAB PO SCH (08:55)
[2019-03-27] MEDS: ISONIAZID 300 MG TAB PO SCH (08:55)
[2019-03-27] MEDS: ETHAMBUTOL HCL 400 MG TAB PO SCH (08:55)
[2019-03-27] MEDS: rifAMPin 300 MG CAPSULE PO SCH (08:55)
--- NOTE | 2019-03-27 15:44 | Family Medicine Progress Note ---
Date of Service March 27, 2019 Assessment & Plan (1) Active tuberculosis: 24-year-old male was admitted on 24 Mar 2019 after being referred by the outpatient pulmonology clinic due to concerns for tuberculosis. Active tuberculosis: Multiple week history of cough including hemoptysis, periodic fevers, and weight loss. Had BCG vaccine as child. Positive T spot. 24May CTA chest notes right upper lobe lesion. 25May bronchoscopy performed by pulmonology noted right upper lobe cavitary lesion. 25May AFB positive for acid-fast bacilli. Seen by infectious disease, 25May started on RIPE antibiotics and Vitamin B6. - Plan for Department of Health to see him tomorrow (28May) for transition to home isolation. Contact evaluation and public health measures at that time. - Notably, patient's girlfriend remains at his bedside. Will obviously need public health evaluation as well. Code status: Full code. Diet: Regular. DVT prophy: SCDs and ambulation. PT/OT: Deferred. Disbo: Admitted to [facility]. Supervising Physician Co-Signing Physician Notes I personally examined the patient and verified all becker points of history and exam, discussed case, and agree with decision making with Dr Lord. feeling ok. waiting on dept of health. girlfriend at bedside. anticipate dept of health also being able to give her guidance on exposure. vitals noted nad breathing unlabored coughing from time to time. Tb - ongoing treatment,dept of health to assume guidance tomorrow. anticipate dc once dept of health able to follow through. Subjective Found patient sitting in his bed eating breakfast. He denies any present complaints or concerns, including any difficulty breathing or hemoptysis. His primary question was what the overall plan for his girlfriend (at his bedside wearing a mask) would be regarding her exposure risk. Review of Systems Review of Systems: As noted in HPI. Physical Exam Physical Exam: General Appearance: Awake, alert & oriented, comfortable in general, NAD. CV: +S1S2 RRR, no murmur. Pulm: Clear to auscultation throughout. Abdomen: +BS, soft, non-tender, non-distended. Extremities: No pedal edema or calf tenderness. Moving all extremities naturally and easily. Neuro: No gross neuro deficits. Results & Data Vital Signs (Past 12 Hours) Vital Signs Temp Pulse Resp BP Pulse Ox 03/27/19 11:13 37.2 C 90 18 104/69 97 03/27/19 09:00 94 H 03/27/19 06:00 37.4 C 14 L 18 102/66 97 Medications Administered Current Inpatient Medications Acetaminophen (Tylenol) 650 mg PO Q4H PRN PRN Reason: pain/fever Stop: 04/23/19 14:48 Last Admin: 03/26/19 20:20 Dose: 650 mg Documented by: Al Hydrox/Mg Hydrox/Simethicone (Maalox) 30 ml PO Q6H PRN PRN Reason: Dyspepsia Stop: 04/23/19 14:48 Ethambutol HCl (Myambutol) 800 mg PO DAILY [facility] Stop: 04/24/19 08:59 Last Admin: 03/27/19 08:55 Dose: 800 mg Documented by: Hydrocodone Bit/Homatropine Methylb (Hycodan) 5 ml PO HS PRN PRN Reason: Cough Stop: 04/09/19 12:20 Last Admin: 03/26/19 22:41 Dose: 5 ml Documented by: Ioversol (Optiray 320 125ml) 115 ml IV ONCE PRN PRN Reason: Interaction Checking Stop: 03/28/19 16:43 Last Admin: 03/24/19 16:45 Dose: 115 ml Documented by: [facility]iaz[facility] (I[facility]iazid) [facility] Stop: 04/24/19 08:59 Last Admin: 03/27/19 08:55 Dose: 300 mg Documented by: Magnesium Hydroxide (Milk Of Magnesia) 30 ml PO Q6H PRN PRN Reason: Constipation Stop: 04/23/19 14:48 Menthol (Nice) 1 dave BUCCAL QID PRN PRN Reason: Sore Throat Stop: 04/25/19 12:20 Last Admin: 03/26/19 14:18 Dose: 1 dave Documented by: Ondansetron HCl (Zofran) 4 mg IV Q6H PRN PRN Reason: Nausea Stop: 04/23/19 14:48 Polyethylene Glycol (Miralax Powder Packet) 17 gm PO DAILY PRN PRN Reason: Constipation Stop: 04/23/19 14:48 Pyrazinamide (Pyrazinamide) 1,000 mg PO QAM [facility] Stop: 04/24/19 08:59 Last Admin: 03/27/19 08:55 Dose: 1,000 mg Documented by: Pyridoxine HCl (Vitamin B-6) [facility] Stop: 04/24/19 08:59 Last Admin: 03/27/19 08:55 Dose: 50 mg Documented by: Rifampin (Rifampin) 600 mg PO [facility] Stop: 04/01/19 08:59 Last Admin: 03/27/19 08:55 Dose: 600 mg Documented by: Resident Activity Tracking Resident Involvement: Resident Care Provided Care Provided: Adult Hospital Medicine
--- NOTE | 2019-03-27 17:38 | Discharge Summary ---
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 He presents with a 8 week history of wet cough, 1-2 episodes of blood streaked phlegm, on/off fevers, and <10 pound weight loss. He was being seen by [facility] who were working him up for URI illness, seeing him every 1-2 weeks since Mid-January. He was given tesslon and proair on 02/14. CXR on 03/01 showed RUL pna and he was given clarithromycin. On 03/06 he notes the cough was unchanged. He was given 5 days of 40mg prednisone, which helped his symptoms and he DNS for appt on 03/10. His symptoms returned, however, a/w intra-scapular discomfort while coughing and more frequent fevers. On 03/21 CXR was repeated and showed progression of RUL infiltrate. He was give Augmentin and azithromycin. Tspot was performed at that visit and returned as positive. He was referred to pulmonology, who saw him today (03/24). He notes a 2 lb weight loss this week. Aside from mostly dry cough and back pain when coughing, he reports some loose stool which he associates with his recent antibiotic use. Of note, he traveled to [facility] in October 2018, and traveled to [facility] in December 2018. Hx of BCG vaccination Lives in [employer] dorm, no roommate. Admission Exam Per Admitting Provider Constitutional: WD/WN, vitals as above Eyes: PERRL, conjunctivae normal, anicteric sclerae ENMT: external ear and nose normal, oropharynx normal Neck: normal visual inspection Respiratory: normal respiratory effort and + cough Auscultation: + rhonchi (RUL) Cardiovascular: RRR, no murmur, no edema Gastrointestinal (Abdomen): normal bowel sounds, soft, nontender, no hepatosplenomegaly Musculoskeletal: no cyanosis or clubbing, extremities motor strength 5/5 Skin: no rashes, warm and dry Neurologic: PERRL, EOMI, accommodation nl, no face palsy, no dysarthria Psychiatric: A+Ox3, euthymic affect Lymphatic: no cervical or axillary lymphadenopathy Principal Diagnosis Active tuberculosis Discharge Exam General Appearance: Awake, alert & oriented, comfortable in general, NAD. CV: +S1S2 RRR, no murmur. Pulm: Clear to auscultation throughout. Ongoing cough. Abdomen: +BS, soft, non-tender, non-distended. Extremities: No pedal edema or calf tenderness. Moving all extremities naturally and easily. Neuro: No gross neuro deficits. Discharge Data Allergies Allergy/AdvReac Type Severity Reaction Status Date / Time Pork/Porcine Containing AdvReac Mild Gastrointestinal Verified 03/24/19 12:48 Products Upset Consultations Pulmonology recommendations [id number] Progress note The patient is still coughing, otherwise doing well. Preliminary report from the bronchial washings/acid fast smears show moderate organisms and the patient was started on 4-drug regimen yesterday empirically. There is little question that we are dealing with cavitary pulmonary tuberculosis and this has been explained to the patient and he has explained this to his family. He is tolerating so far the 4-drug regimen and we are working with Dr. Cortes and we are in agreement to keep him there to at least Wednesday and make contact with Department of Health, so that they can supply his medications free of charge and go about their business to inform and test contacts. Infectious disease recommendations [id number] Progress note continue isolation, maintain 4 drug therapy for suspected cavitary pulm tb. will follow with [facility] on Wednesday am and proceed with transition to home isolation, contact eval, etc at that time. Ordered Studies CTA of the chest on 24 Mar 2019 IMPRESSION: 1. Atypical infiltrative process right upper lobe with a dominant 2.9 x 2.3 cm nodule or consolidative component demonstrating central necrosis 2. Diagnostic considerations must include an atypical inflammatory process, granulomatous process, or potentially autoimmune/opportunistic inflammatory process. 3. Bronchoscopy is suggested as follow-up. 4. Remainder the chest is negative. 5. Mild hepatomegaly. 6. The pulmonary arterial vasculature appears unremarkable. Hospital Course (1) Active tuberculosis: 24-year-old male was admitted on 24 Mar 2019 after being referred by the outpatient pulmonology clinic due to concerns for tuberculosis. Active tuberculosis: Multiple week history of cough including hemoptysis, periodic fevers, and weight loss. Had BCG vaccine as child. Positive T spot. 24May CTA chest notes right upper lobe lesion. 25May bronchoscopy performed by pulmonology noted right upper lobe cavitary lesion. 25May AFB positive for aci d-fast bacilli. 28May HIV was negative. - Seen by infectious disease, 25May started on Rifampin, Isoniazid, Pyrazinamide, and Ethambutol (RIPE) antibiotics and Vitamin B6. Duration course will be based on ongoing infectious disease and public health involvement (thus the noted 30 days prescription on discharge paperwork is arbitrary, as the treatment course is likely far longer than that). - On discussions with the hospitals infectious disease department, the Department of Health will be seeing the patient this afternoon in his apartment. Thus plan is to discharge from the hospital today. They also stated Department of Health will to contact tracing to include his girlfriend who is at high risk due to being at his bedside during this hospitalization. -In interim, patient was advised to keep the mask on at all times and remain in his apartment until cleared by health department for further exposure to the public. Total Time Total Time Spent Total Time Spent (In Minutes): > 30 min Discharge Plan Discharge Items Patient Disposition: Home - Self-Care Reason For Visit: +PPD UNRESOVLES PNEUMONIA Discharge Diagnosis: Active tuberculosis Discharge Goals: Improve disease control, Learn about illness, Prevent disease and Specific goals Activity: Per 'Additional Instructions' section Activity Comment: Per Department of Health instructions Non-emergency contact: Primary Care Provider Call non-emergency contact if: you have any medication questions Follow-up/Referrals: [facility] [Primary Care Provider] - Diet: Regular Addtl Provider Instructions: You were admitted to the hospital on March 24, 2019 after being referred by the pulmonology (lung) clinic due to concerns for tuberculosis. While in the hospital you were seen by the glycerin operator as well as infectious disease. Their evaluation confirms that you do have active tuberculosis. Your five medication treatment regimen was started here in the hospital. - The infectious disease department recommends that you continue this treatment regimen per their instructions. - The Department of Health will be visiting you this afternoon (March 28) at your residence to discuss their monitoring plans going forwards. They will give you instructions on what level of contact you should be having with the public. Until you are cleared by them, you are advised to wear a mask and to remain in your apartment at all times. - Please encourage your girlfriend to follow the department of health instructions as well given her increased risk of exposure as a close contact. Please return to the nearest emergency department if you have any concerns about difficulty breathing, uncontrolled pain, or any other emergent concerns. Prescriptions: [place] is[place]zid 300 mg Tablet 300 mg PO QAM 30 Days Qty: 30 RF: 0 rifampin 300 mg Capsule 600 mg PO QAM 30 Days Qty: 60 RF: 0 ethambutol [Myambutol] 400 mg Tablet 800 mg PO DAILY 30 Days Qty: 60 RF: 0 pyridoxine (vitamin B6) 50 mg Tablet 50 mg PO QAM 30 Days Qty: 30 RF: 0 pyrazinamide 500 mg Tablet 1,000 mg PO QAM 30 Days Qty: 60 RF: 0 Discontinued albuterol sulfate 90 mcg/actuation HFA aerosol inhaler RF: 0 amoxicillin-pot clavulanate 875-125 mg tablet RF: 0 azithromycin 250 mg tablet RF: 0 Stand-Alone Forms: [facility] Discharge Orders: Discharge Order (Routine); Ordered 03/28/19 Ordered By: Shailesh Lord Admission Data Admit Date/Time: 03/24/19 11:38 Attending Provider: Luis Barajas Admit Provider: Salud Yanez Primary Care Provider: [facility] Other Providers: Caesar Santana ; Vel Anthony ; Pamela Snowden Service: Medical Other Interventions: Discharge Summary Assessment (RN) Last Done: 03/28/19 10:45 DC Date/Time DO NOT enter until pt leaves facility: 03/28/19 14:26 Supervising Physician Co-Signing Physician Notes I personally examined the patient and verified all becker points of history and exam, discussed case, and agree with decision making with Dr Lord. feeling ok. d/w infection control, dept of health to see him at home this afternoon. answered all of pt's questions to hte best of my ability vitals noted nad breathing unlabored, coughing from time to time. cn 2-12 grossly intact gross motor/sensory intact Tb - ongoing treatment, home w treatment to be facilitated through dept of health. discussed infection control precautions, discussed to have [facility] also eval girlfriend's exposures. stable for home. outpt f/u w [facility] and infectious disease Resident Activity Tracking Resident Involvement: Resident Care Provided Care Provided: Adult Hospital Medicine
[2019-03-27] MEDS: HYDROCODONE/HOMATROPINE SYRUP 5MG/1.5MG 5ML UDP PO PRN (23:22)
[2019-03-28] MEDS: rifAMPin 300 MG CAPSULE PO SCH (07:55)
[2019-03-28] MEDS: ETHAMBUTOL HCL 400 MG TAB PO SCH (07:56)
[2019-03-28] MEDS: PYRIDOXINE HCL 50 MG TAB PO SCH (07:56)
[2019-03-28] MEDS: PYRAZINAMIDE 500 MG TABLET PO SCH (07:56)
[2019-03-28] MEDS: ISONIAZID 300 MG TAB PO SCH (07:56)
--- NOTE | 2019-03-28 08:05 | Operative Report ---
DATE OF OPERATION: 03/25/2019 PROCEDURE: Fiberoptic bronchoscopy with bronchoalveolar lavage. INDICATIONS: Cavitary right upper lobe pneumonia/positive TB spot serology to rule out pulmonary tuberculosis. ANESTHESIA PREOPERATIVELY: None. ANESTHESIA DURING PROCEDURE: IV Versed 4 mg, IV fentanyl 100 mcg, 20 mL 2% Xylocaine spray above and below the cords, 4% viscous Xylocaine intranasally. DESCRIPTION OF PROCEDURE: Moderate conscious sedation was utilized and implemented at 0910 and completed at 0924. Fiberoptic bronchoscope was inserted into the right naris with minimal difficulty and passed to the level of the true vocal cords. The cords appeared to approximate normally with phonation without evidence for lesions or paralysis. The supraglottic region was well within normal limits and there was no sign of laryngeal TB or evidence to suggest that. The cords were anesthetized with 2% Xylocaine spray and the scope was introduced in the trachea and right and left tracheobronchial tree. The milan was sharp. Left main stem bronchus was explored initially and no endobronchial lesions were seen. Left upper lobe with the apical-posterior and anterior segments, lingual subdivision with the superior and inferior segments and all basilar segments of left lower lobe were free of endobronchial lesions down to the subsegmental bronchi. The right tracheobronchial tree was explored and no obvious endobronchial lesions were seen. The right upper lobe at the apical posterior and anterior segments, bronchus intermedius, right middle lobe at the medial and lateral segments and all basilar segments of right lower lobe were found to be free of endobronchial lesions. Scope was then withdrawn to the right upper lobe. The posterior segment did show some mild mucosal irregularity with an inflammatory mucosal change and both the posterior and apical and anterior segments were copiously lavaged with normosol and the aspirate sent for appropriate studies. No biopsies or brushings were obtained. The procedure was terminated. The patient was given a nebulizer treatment with Xopenex 1.25 mg and appeared hemodynamically stable, no signs of respiratory compromise. We will await microbiological and cytologic examination of the bronchial washings. I attest to the content of the Intraoperative Record and any orders documented therein. Any exception s are noted below.
--- NOTE | 2019-03-28 14:14 | Infectious Disease Progress Nt ---
Date of Service March 28, 2019 Assessment & Plan (1) Active tuberculosis: Pt to go home later toay, will meet with [facility] and continue meds via DOT. He understands that he must remain home and any travel outside of house (doctor visit) he will need to wear a surgical mask, he is agreeable. he will need 3 negative smears to be removed from isolation. He will continue DOT. He will plan to follow at [facility] clinic, next Wednesday, 04/07. 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 will discuss this further at his next clinic visit. All questions answered. ok for d/c, will meet with [facility] at his apartment later today. Subjective pt seen in followup, girlfriend present. states he spoke with [facility] nurse and has home meeting scheduled for later today. He is tolerating meds well. uric acid slighlty elevated, LFTs normal, HIV pending. still with some cough but overall feeling better. afb culture pending, smear mod afb noted. He remains in resp isolation. min left sided chest pain with deep inspiration. denies f/c. no hemoptysis, no abd pain, eating lunch. no n/v/d. Review of Systems Review of Systems: All systems reviewed & are unremarkable except as noted in HPI & below Physical Exam Constitutional: WD/WN, vitals as above Eyes: PERRL, conjunctivae normal, anicteric sclerae ENMT: external ear and nose normal, oropharynx normal Neck: normal visual inspection Respiratory: normal respiratory effort, lungs clear to auscultation Cardiovascular: RRR, no murmur, no edema Gastrointestinal (Abdomen): normal bowel sounds, soft, nontender, no hepatosplenomegaly Musculoskeletal: no cyanosis or clubbing, extremities motor strength 5/5 Skin: no rashes, warm and dry Psychiatric: A+Ox3, euthymic affect Results & Data Vital Signs (Past 12 Hours) Vital Signs Temp Pulse Resp BP BP Pulse Ox 03/28/19 11:15 37.0 C 96 H 18 102/67 97 03/28/19 10:45 37.1 C 96 H 18 105/69 97 03/28/19 07:20 37.1 C 96 H 18 105/69 97 03/28/19 03:27 37.2 C 89 102/61 94 Laboratory Results Microbiology 03/25/19 08:30 Bronch Wash,Right Upper Lobe Fungal Smear - Final 03/25/19 08:30 Bronch Wash,Right Upper Lobe Fungal Culture - Preliminary No yeast or fungus isolated - Report 1, Additional Report to Follow. 03/25/19 08:30 Bronch Wash,Right Upper Lobe Gram Stain - Final 03/25/19 08:30 Bronch Wash,Right Upper Lobe Bronchoalveolar Lavage Culture - Final Moderate normal madelin. 03/25/19 08:30 Bronch Wash,Right Upper Lobe Acid Fast Bacilli Smear - Final
[2019-03-30 12:45] LABS: Quantiferon Mitogen-NIL >10.00 IU/ML; Quantiferon TB Gold Plus POSITIVE (NEGATIVE); Quantiferon TB1-NIL >10.00 IU/ML; Quantiferon TB2-NIL 8.27 IU/ML
== END 2019-03-28 14:26 | disposition home or self-care (01) ==
LOC: INTOOBSV 11:38 → 4E 11:38 → SUATTDRO 11:38